=== PATIENT | male | born 1955 | race Caucasian/White ===

== ENCOUNTER 2016-10-14 15:50 | Inpatient (IN) ==
[2016-10-14 16:37] VITALS: BMI 35.4
[2016-10-14] MEDS: GLUCOPHAGE PO SCH (17:28)
[2016-10-14] MEDS: XARELTO PO SCH (17:28)
[2016-10-14] MEDS ORDERED: HUMALOG SUBCUT SCH (18:09)
[2016-10-14] MEDS ORDERED: HUMALOG SUBCUT ONE (18:18)
[2016-10-14] MEDS: OMEGA-3 FISH OIL PO SCH (20:20)
[2016-10-14] MEDS: INSULIN DEGLUDEC 60 UNIT SUBCUT SCH (20:20)
[2016-10-14] MEDS: NON-FORMULARY MEDICATION (Cinnamon Bark [Cinnamon] 1,000 MG) PO SCH (20:21)
[2016-10-14] MEDS ORDERED: FISH OIL PO SCH (21:00)
[2016-10-14] MEDS ORDERED: NON-FORMULARY MEDICATION (Metformin Hcl [Metformin Hcl] 1,000 MG) PO SCH ×22 (21:00)
[2016-10-14] MEDS ORDERED: DHA PO SCH (21:00)
[2016-10-14] MEDS ORDERED: EPA PO SCH (21:00)
[2016-10-14] MEDS: PERCOCET 5-325 PO PRN (22:43)
[2016-10-15] MEDS: SYNTHROID PO SCH (05:34)
[2016-10-15 06:13] LABS: BASOPHILS % (AUTO) 0.5 % (0.0-3.0); EOSINOPHILS # (AUTO) 0.2 K/ul (0.0-0.7); EOSINOPHILS % (AUTO) 2.3 % (0.0-7.0); IMMATURE GRANULOCYTE % (AUTO) 1.8 % (0.0-5.0); LYMPHOCYTES # (AUTO) 2.3 K/uL (0.60-3.4); LYMPHOCYTES % (AUTO) 28.9 (10.0-50.0); MEAN CORPUSCULAR HEMOGLOBIN 29.2 pg (27.0-31.0); MEAN CORPUSCULAR HGB CONC 33.3 (31.8-35.4); MEAN CORPUSCULAR VOLUME 87.7 fl (80.0-94.0); MONOCYTES # (AUTO) 0.6 K/uL (0.4-2.0); MONOCYTES % (AUTO) 7.8 (0-10); NEUTROPHILS # (AUTO) 4.7 K/ul (2.0-6.9); NEUTROPHILS % (AUTO) 58.7; PLATELET COUNT 332 10^3/uL (140-440); RED BLOOD COUNT 3.08 10^6/ul (4.70-6.10); WHITE BLOOD COUNT 7.93 K/ul (4.2-10.2)
[2016-10-15 06:38] LABS: ALBUMIN 2.6 g/dL (3.4-5.0); ALBUMIN/GLOBULIN RATIO 0.74; ANION GAP 11.9; BILIRUBIN,TOTAL 0.27 mg/dL (0.00-1.20); BUN/CREATININE RATIO 25.51; CALCIUM 8.3 mg/dL (8.2-10.2); CREATININE 0.98 mg/dL (0.60-1.10); POTASSIUM 3.9 mmol/L (3.5-5.1); TOTAL PROTEIN 6.1 g/dL (5.8-8.1)
[2016-10-15] MEDS ORDERED: HUMALOG SUBCUT SCH (08:00)
[2016-10-15] MEDS: HUMALOG SUBCUT SCH ×3 (08:14→17:28)
[2016-10-15] MEDS ORDERED: NON-FORMULARY MEDICATION (Multivit-Min/Fa/Lycopene/Lut [Centrum Silver Tablet] 1 TAB) PO SCH (09:00)
[2016-10-15] MEDS: OMEGA-3 FISH OIL PO SCH ×2 (09:36→20:41)
[2016-10-15] MEDS: GLUCOPHAGE PO SCH ×2 (09:36→17:08)
[2016-10-15] MEDS: CYMBALTA PO SCH (09:36)
[2016-10-15] MEDS: MULTIVITAMIN PO SCH (09:36)
[2016-10-15] MEDS: NON-FORMULARY MEDICATION (Cinnamon Bark [Cinnamon] 1,000 MG) PO SCH ×2 (09:46→21:00)
[2016-10-15] MEDS: CHROMIUM AMINO ACID CHELATE PO SCH (09:47)
[2016-10-15] MEDS: PERCOCET 5-325 PO PRN ×2 (10:03→14:25)
--- NOTE | 2016-10-15 11:37 | RS.PTINEVL ---
Subjective - Patient information Date of Evaluation: 10/15/16 Date of Arrival on Unit: 10/14/16 Admitted From:: Facility Transfer (Left TKA 10/11/16) Usual Living Arrangement: Alone Home Environment: Apartment, Level/No stairs Medical History: Diabetes Medical History Comments:: sleep apnea, right TKA June 2016 Subjective Information/ Patient Comments:: Patient reports he has a walker at home. Rates knee pain while walking about a 6/10. States he had pain medication approximately 45 minutes ago. States he does not want to be in the hospital more than two weeks. - Level of function Prior to this admission, the patient could do the following:: Independent Selfcare, Independent ADL's, Independent Ambulation, Perform Hvac Operations Technician/ Cooking, Drive, Participated in Social Activities Outside home, Volunteer/Work Current Level of Function: Partially Dependent Current Equipment Used at Home: cpap, glucometer, walker from last surgery and for this one. Interventions - Objective Patient Orientation: Person, Place, Time, Situation Observation: Left knee incision is approximated with sutures. It is clean and dry prior to ambulation. Following ambulation and ROM, incision demonstrates minimal draining at most superior aspect. Nursing notifed. Range of Motion - ROM Right Upper Extremity AROM: WFL's Left Upper Extremity AROM: WFL's Right Lower Extremity AROM: WFL's Left Lower Extremity AROM: Moderate limitation (left knee -5 to 70 degrees AROM) Muscle Strength - Muscle Strength Right Upper Extremity Strength: Normal Left Upper Extremity Strength: Normal Right Lower Extremity Strength: Normal Left Lower Extremity Strength: Mild Weakness Sensation - Sensation Right Lower Extremity Sensation: Intact/Normal Left Lower Extremity Sensation: Intact/Normal Balance - Sitting Balance and Reactions Static Sitting Balance: Good Dynamic Sitting Balance: Good - Standing Balance and Reactions Static Standing Balance: Good (with RW) Dynamic Standing Balance: Good (with RW) Functional Mobility - Bed Mobility Supine to Sit: Min Assist, 1 person assist, Verbal Cues, Tactile Cues Sit to Supine: Min Assist, 1 person assist, Verbal Cues, Tactile Cues Comments:: Patient demonstrates need for assistance with left LE to move it on and off the bed. - Transfers Sit to Stand: CGA, 1 person assist, Verbal Cues, Tactile Cues Stand to Sit: CGA, 1 person assist, Verbal Cues, Tactile Cues Stand Pivot Transfers: CGA, 1 person assist, Verbal Cues, Tactile Cues Comments:: Patient given verbal cues for using at least one hand to push from the bed when standing up. - Safety Awareness Safety Awareness: Fair Ambulation - Ambulation Weight Bearing Status: FWB Assistive Device Used: Rolling Walker Distance: 80 feet Assistance needed with Ambulation: CGA, Verbal Cues, Tactile Cues Quality of Ambulation: Patient takes very short steps for the first half of the distance he walked. After that, steps were more of a natural stride. He demonstrates decreased stance phase on the left LE. Decreased left knee flexion during swing phase. Decreased left heel strike. Gait Deviations: Short stride, Lacks step continuity Factors Affecting Ambulation: Pain, Decreased ROM, Decreased Safety, Limited Endurance Treatment time - Time with patient Total treatment time: 24 (mins) Patient Education - Education Patient Education: Education of diagnosis, Body/Joint mechanics, Education of Plan of Care Teaching Recipient: Patient Teaching Methods: Discussion Assessment - Assessment Problem List:: Decreased level of function, Requires training/education, Decreased safety/Risk of falls, Pain limits previous level of function Rehab Potential: Good Further Therapy Indicated?: Yes Short Term Goals GOAL #1: Supine to sit with supvn. Goal to be met by: 10/19/16 GOAL #2: Sit to stand with supvn. Goal to be met by: 10/19/16 GOAL #3: Pt amb. with supvn 150 feet with RW and good stride length. Goal to be met by: 10/19/16 Prison Goals GOAL #1: All bed mobility independent. Goal to be met by: 10/25/16 GOAL #2: All transfers independent with good safety. Goal to be met by: 10/25/16 GOAL #3: Pt amb. with RW household distances, independent with good safety. Goal to be met by: 10/25/16 Plan Plan of Care: Therapeutic EX, Neuromuscular Re-Educ, Therapeutic Activity, Self- Care/Home Management Modalities: Cold Pack/Cryotherapy Frequency of Treatment: 1-2 X day, as tolerated Duration of Treatment: 10 days Anticipated Discharge Destination: Home
[2016-10-15] MEDS ORDERED: MIRALAX PO PRN (13:48)
[2016-10-15] MEDS: COLACE PO SCH ×2 (14:25→20:41)
[2016-10-15] MEDS ORDERED: HUMALOG SUBCUT PRN (14:58)
[2016-10-15] MEDS: XARELTO PO SCH (17:07)
[2016-10-15] MEDS: INSULIN DEGLUDEC 60 UNIT SUBCUT SCH (20:41)
[2016-10-15] MEDS: FLOMAX PO SCH (20:41)
[2016-10-16] MEDS: SYNTHROID PO SCH (05:48)
[2016-10-16] MEDS: PERCOCET 5-325 PO PRN ×4 (07:29→22:41)
[2016-10-16] MEDS: MULTIVITAMIN PO SCH (08:39)
[2016-10-16] MEDS: OMEGA-3 FISH OIL PO SCH ×2 (08:39→20:22)
[2016-10-16] MEDS: GLUCOPHAGE PO SCH ×2 (08:39→16:46)
[2016-10-16] MEDS: COLACE PO SCH ×3 (08:39→20:22)
[2016-10-16] MEDS: CYMBALTA PO SCH (08:39)
[2016-10-16] MEDS: CHROMIUM AMINO ACID CHELATE PO SCH (08:40)
[2016-10-16] MEDS: NON-FORMULARY MEDICATION (Cinnamon Bark [Cinnamon] 1,000 MG) PO SCH ×2 (08:40→20:21)
[2016-10-16] MEDS: HUMALOG SUBCUT SCH ×3 (09:14→17:47)
[2016-10-16] MEDS: XARELTO PO SCH (16:46)
[2016-10-16] MEDS: FLOMAX PO SCH (20:22)
[2016-10-16] MEDS: INSULIN DEGLUDEC 60 UNIT SUBCUT SCH (20:22)
[2016-10-17] MEDS: PERCOCET 5-325 PO PRN ×5 (04:50→21:11)
[2016-10-17] MEDS: SYNTHROID PO SCH (05:36)
[2016-10-17] MEDS: MULTIVITAMIN PO SCH (08:31)
[2016-10-17] MEDS: CYMBALTA PO SCH (08:31)
[2016-10-17] MEDS: COLACE PO SCH ×3 (08:31→20:31)
[2016-10-17] MEDS: OMEGA-3 FISH OIL PO SCH ×2 (08:31→20:30)
[2016-10-17] MEDS: GLUCOPHAGE PO SCH ×2 (08:31→16:40)
[2016-10-17] MEDS: NON-FORMULARY MEDICATION (Cinnamon Bark [Cinnamon] 1,000 MG) PO SCH ×2 (08:35→20:26)
[2016-10-17] MEDS: CHROMIUM AMINO ACID CHELATE PO SCH (08:35)
[2016-10-17] MEDS: HUMALOG SUBCUT SCH ×3 (08:45→17:53)
[2016-10-17] MEDS: XARELTO PO SCH (16:40)
[2016-10-17] MEDS: INSULIN DEGLUDEC 60 UNIT SUBCUT SCH (20:29)
[2016-10-17] MEDS: FLOMAX PO SCH (20:31)
[2016-10-18] MEDS: PERCOCET 5-325 PO PRN ×5 (01:20→20:51)
[2016-10-18 04:46] LABS: BASOPHILS # (AUTO) 0.1 K/uL (0-0.2); BASOPHILS % (AUTO) 0.6 % (0.0-3.0); EOSINOPHILS # (AUTO) 0.2 K/ul (0.0-0.7); EOSINOPHILS % (AUTO) 2.8 % (0.0-7.0); HEMATOCRIT 28.4 % (42.0-52.0); HEMOGLOBIN 9.3 g/dl (14.0-18.0); IMMATURE GRANULOCYTE % (AUTO) 3.5 % (0.0-5.0); LYMPHOCYTES # (AUTO) 2.6 K/uL (0.60-3.4); LYMPHOCYTES % (AUTO) 31.1 (10.0-50.0); MEAN CORPUSCULAR HEMOGLOBIN 28.4 pg (27.0-31.0); MEAN CORPUSCULAR HGB CONC 32.7 (31.8-35.4); MEAN CORPUSCULAR VOLUME 86.9 fl (80.0-94.0); MONOCYTES # (AUTO) 0.6 K/uL (0.4-2.0); MONOCYTES % (AUTO) 7.6 (0-10); NEUTROPHILS # (AUTO) 4.5 K/ul (2.0-6.9); NEUTROPHILS % (AUTO) 54.4; PLATELET COUNT 408 10^3/uL (140-440); RED BLOOD COUNT 3.27 10^6/ul (4.70-6.10); WHITE BLOOD COUNT 8.26 K/ul (4.2-10.2)
[2016-10-18 05:11] LABS: ALBUMIN 2.7 g/dL (3.4-5.0); ALBUMIN/GLOBULIN RATIO 0.77; ANION GAP 13.3; BILIRUBIN,TOTAL 0.46 mg/dL (0.00-1.20); BUN/CREATININE RATIO 19.1; CALCIUM 8.9 mg/dL (8.2-10.2); CREATININE 0.89 mg/dL (0.60-1.10); POTASSIUM 4.3 mmol/L (3.5-5.1); TOTAL PROTEIN 6.2 g/dL (5.8-8.1)
[2016-10-18] MEDS: SYNTHROID PO SCH (05:36)
[2016-10-18] MEDS: HUMALOG SUBCUT SCH ×3 (08:26→17:39)
[2016-10-18] MEDS: CHROMIUM AMINO ACID CHELATE PO SCH (08:27)
[2016-10-18] MEDS: COLACE PO SCH ×3 (08:28→20:51)
[2016-10-18] MEDS: MULTIVITAMIN PO SCH (08:28)
[2016-10-18] MEDS: CYMBALTA PO SCH (08:28)
[2016-10-18] MEDS: NON-FORMULARY MEDICATION (Cinnamon Bark [Cinnamon] 1,000 MG) PO SCH ×2 (08:28→20:05)
[2016-10-18] MEDS: GLUCOPHAGE PO SCH ×2 (08:28→18:29)
[2016-10-18] MEDS: OMEGA-3 FISH OIL PO SCH ×2 (08:29→20:51)
--- NOTE | 2016-10-18 08:34 | RS.OTINEVL ---
Subjective - Patient information Date of Evaluation: 10/15/16 Date of Arrival on Unit: 10/14/16 Admitted From:: Facility Transfer (Left TKA 10/11/16) Usual Living Arrangement: Alone Living Arrangement Comments: Pt has an apartment in [place] on the bottom floor and it is one level. Pt has a rolling walker and a built in shower chair in his apartment. Home Environment: Apartment, Level/No stairs Medical History: Diabetes Medical History Comments:: sleep apnea, right TKA June 2016 Surgical History: Knee Replacement Surgical History Comments:: R TKA 3 months ago. L TKA for this hospitalization. 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 Current Level of Function: Partially Dependent Current Equipment Used at Home: cpap, glucometer, walker from last surgery and for this one. Pain Assessment - Pain Pain Score: 7 Side: left Pain Location Body Site: Knee Pain Aggravating Factors: ADL's, Changing Position, Exercise/Activity, Standing , Walking Pain Alleviating Factors: Ice, Exercise Interventions - Objective Patient Orientation: Person, Place, Time, Situation Observation: Pt appears to have edema of Left knee. Patient has pain and is not feeling well today. Pt participated well. Interventions - ROM Right Upper Extremity AROM: WFL's Left Upper Extremity AROM: WFL's - Strength Right Upper Extremity Strength: Mild Weakness Left Upper Extremity Strength: Mild Weakness - Sensation Right Upper Extremity Sensation: Intact/Normal Left Upper Extremity Sensation: Intact/Normal Balance - Sitting Balance Static Sitting Balance: Normal Dynamic Sitting Balance: Normal - Standing Balance Static Standing Balance: Fair Dynamic Standing Balance: Fair ADL Skills - Self Feeding Self Feeding: Independent - Grooming Grooming: Supervision - Bathing Bathing UE: Set Up Only Bathing LE: Min Assist - Dressing Dressing UE: Set Up Only Dressing LE: Min Assist - Toilet Management Toileting Management: Independent Functional Mobility - Bed Mobility Rolling R/L: CGA Scooting: Independent Supine to Sit: Independent Sit to Supine: Min Assist - Transfers Sit to Stand: CGA Stand to Sit: CGA Stand Pivot Transfers: CGA - Ambulation Weight Bearing Status: WBAT Assistive Device Used: Rolling Walker Assistance needed with Ambulation: CGA - Safety Awareness Safety Awareness: Fair Additional Treatment Performed - Additional units charged ADL: 12 - Time with patient Total treatment time: 25 Activities Patient Interests:: Watching Television Patient Education Patient Education: Education of diagnosis, Home Exercise Program, Home Safety, Education of Plan of Care Teaching Recipient: Patient Teaching Methods: Discussion Assessment Problem List:: Decreased level of function, Requires training/education, Decreased safety/Risk of falls, Weakness, Pain limits previous level of function Rehab Potential: Good Further Therapy Indicated?: Yes Short Term Goals - Goals GOAL 1: Pt to tolerate 10 minutes of standing ADLS Mod. I. Goal to be met by: 10/25/16 GOAL 2: Pt to be independent with functional transfers Mod. I. Goal to be met by: 10/25/16 GOAL 3: Pt to Increase BUE strength to 4+/5 Goal to be met by: 10/25/16 Alf Goals GOAL 1: Pt to tolerate 15 minutes of standing ADLS. Goal to be met by: 10/29/16 GOAL 2: Pt to be independent with Home exercise program Goal to be met by: 10/29/16 GOAL 3: Pt to be modified Independent with all Goals. Goal to be met by: 10/29/16 Plan Plan of Care: Therapeutic EX, Neuromuscular Re-Educ, Therapeutic Activity, Self- Care/Home Management Modalities: Cold Pack/Cryotherapy Frequency of Treatment: 1-2 X day, as tolerated Duration of Treatment: 2 Weeks Anticipated Discharge Destination: Home
[2016-10-18] MEDS: XARELTO PO SCH (18:28)
[2016-10-18] MEDS: INSULIN DEGLUDEC 60 UNIT SUBCUT SCH (20:50)
[2016-10-18] MEDS: FLOMAX PO SCH (20:51)
[2016-10-19] MEDS: PERCOCET 5-325 PO PRN ×4 (05:16→20:34)
[2016-10-19] MEDS: SYNTHROID PO SCH (06:11)
[2016-10-19] MEDS: MULTIVITAMIN PO SCH (08:08)
[2016-10-19] MEDS: COLACE PO SCH ×3 (08:08→20:34)
[2016-10-19] MEDS: OMEGA-3 FISH OIL PO SCH ×2 (08:08→20:34)
[2016-10-19] MEDS: CYMBALTA PO SCH (08:09)
[2016-10-19] MEDS: GLUCOPHAGE PO SCH ×2 (08:09→17:46)
[2016-10-19] MEDS: HUMALOG SUBCUT SCH ×3 (08:12→17:46)
[2016-10-19] MEDS: CHROMIUM AMINO ACID CHELATE PO SCH (09:15)
[2016-10-19] MEDS: NON-FORMULARY MEDICATION (Cinnamon Bark [Cinnamon] 1,000 MG) PO SCH ×2 (09:15→21:01)
[2016-10-19] MEDS: XARELTO PO SCH (17:47)
[2016-10-19] MEDS: INSULIN DEGLUDEC 60 UNIT SUBCUT SCH (20:33)
[2016-10-19] MEDS: FLOMAX PO SCH (20:34)
[2016-10-20] MEDS: PERCOCET 5-325 PO PRN ×6 (00:48→21:11)
[2016-10-20] MEDS: SYNTHROID PO SCH (05:53)
[2016-10-20] MEDS: GLUCOPHAGE PO SCH ×2 (08:59→17:07)
[2016-10-20] MEDS: OMEGA-3 FISH OIL PO SCH ×2 (09:01→21:10)
[2016-10-20] MEDS: NON-FORMULARY MEDICATION (Cinnamon Bark [Cinnamon] 1,000 MG) PO SCH ×2 (09:02→21:10)
[2016-10-20] MEDS: CYMBALTA PO SCH (09:02)
[2016-10-20] MEDS: MULTIVITAMIN PO SCH (09:02)
[2016-10-20] MEDS: CHROMIUM AMINO ACID CHELATE PO SCH (09:03)
[2016-10-20] MEDS: HUMALOG SUBCUT SCH ×4 (09:08→18:04)
[2016-10-20] MEDS: COLACE PO SCH ×3 (09:09→21:10)
[2016-10-20] MEDS ORDERED: HUMALOG SUBCUT STA ×2 (10:54→12:57)
[2016-10-20] MEDS: XARELTO PO SCH (17:07)
[2016-10-20] MEDS: FLOMAX PO SCH (21:10)
[2016-10-20] MEDS: INSULIN DEGLUDEC 60 UNIT SUBCUT SCH (21:11)
[2016-10-21 05:49] VITALS: BP 133/72; TEMP 98.2
[2016-10-21] MEDS: SYNTHROID PO SCH (05:49)
[2016-10-21 05:50] LABS: BASOPHILS # (AUTO) 0.1 K/uL (0-0.2); BASOPHILS % (AUTO) 0.7 % (0.0-3.0); EOSINOPHILS # (AUTO) 0.3 K/ul (0.0-0.7); HEMATOCRIT 29.7 % (42.0-52.0); HEMOGLOBIN 9.8 g/dl (14.0-18.0); IMMATURE GRANULOCYTE % (AUTO) 2.6 % (0.0-5.0); LYMPHOCYTES # (AUTO) 2.5 K/uL (0.60-3.4); LYMPHOCYTES % (AUTO) 29.8 (10.0-50.0); MEAN CORPUSCULAR HEMOGLOBIN 28.9 pg (27.0-31.0); MEAN CORPUSCULAR VOLUME 87.6 fl (80.0-94.0); MONOCYTES # (AUTO) 0.5 K/uL (0.4-2.0); MONOCYTES % (AUTO) 6.4 (0-10); NEUTROPHILS # (AUTO) 4.8 K/ul (2.0-6.9); NEUTROPHILS % (AUTO) 57.5; PLATELET COUNT 513 10^3/uL (140-440); RED BLOOD COUNT 3.39 10^6/ul (4.70-6.10)
[2016-10-21 06:07] LABS: ALBUMIN/GLOBULIN RATIO 0.79; ANION GAP 15.2; BILIRUBIN,TOTAL 0.49 mg/dL (0.00-1.20); POTASSIUM 4.2 mmol/L (3.5-5.1); TOTAL PROTEIN 6.8 g/dL (5.8-8.1)
[2016-10-21] MEDS: MULTIVITAMIN PO SCH (08:24)
[2016-10-21] MEDS: COLACE PO SCH (08:24)
[2016-10-21] MEDS: OMEGA-3 FISH OIL PO SCH (08:24)
[2016-10-21] MEDS: CYMBALTA PO SCH (08:24)
[2016-10-21] MEDS: GLUCOPHAGE PO SCH (08:24)
[2016-10-21] MEDS: CHROMIUM AMINO ACID CHELATE PO SCH (08:25)
[2016-10-21] MEDS: NON-FORMULARY MEDICATION (Cinnamon Bark [Cinnamon] 1,000 MG) PO SCH (08:25)
[2016-10-21] MEDS: PERCOCET 5-325 PO PRN ×2 (08:27→13:07)
[2016-10-21] MEDS: HUMALOG SUBCUT SCH ×2 (08:45→12:04)
[2016-10-21] MEDS ORDERED: HUMALOG SUBCUT STA (12:04)
[2016-10-25] MEDS ORDERED: ASPIRIN EC PO SCH (08:00)
--- NOTE | 2016-12-01 11:37 | HP ---
CHIEF COMPLAINT: "I had my knee done." DISCUSSION: This 61-year-old gentleman who originally had his left knee replaced by Dr. Olguin. He is admitted to the Transitional Care Unit for further rehabilitation, Physical Therapy. Denies any chest pain, shortness of breath or hemoptysis. PAST MEDICAL HISTORY: MEDICATIONS: Centrum Metformin NovoLog Insulin Flomax Synthroid Tresiba Fish Oil Cymbalta Cinnamon Chromium Xarelto Percocet Aspirin ALLERGIES: ADHESIVE TAPE, PROCHLORPERAZINE PAST MEDICAL HISTORY: Significant for history of diabetes type 2 BPH Hypothyroidism Degenerative joint disease History of obstructive sleep apnea PAST SURGICAL HISTORY: Knee scope Sinus surgery Bilateral TKRA SOCIAL HISTORY: . No tobacco. No illicit drug use is noted. FAMILY HISTORY: Positive for family history of pancreatic cancer. REVIEW OF SYSTEMS: No headaches, visual changes, tinnitus, chest pain, shortness of breath, hemoptysis, abdominal pain, blood in the stool, urinary symptoms or seizures. PHYSICAL EXAMINATION: V/S: Temperature 96, pulse 80, respiratory rate 18, BP 168/72. HEENT: Pupils are round. NECK: Supple. CHEST: Clear. CARDIOVASCULAR: Regular rate and rhythm. ABDOMEN: Soft, nontender. EXTREMITIES: Distal extremities without cyanosis or edema. ASSESSMENT: 1. STATUS POST TOTAL LEFT KNEE PLAN: 1. Admission 2. PT/OT 3. Will follow blood sugars during the hospital stay 4. Please see orders MTDD
--- NOTE | 2016-12-01 11:41 | DS ---
PRINCIPAL DIAGNOSIS: 1. STATUS POST TOTAL LEFT KNEE DISCUSSION: This 61-year-old gentleman who originally had his left knee replaced by Dr. Olguin. He is admitted to the Transitional Care Unit for further rehabilitation, Physical Therapy. Denies any chest pain, shortness of breath or hemoptysis. CLINICAL COURSE: Mr. Ballesteros did very well. He progressed with physical therapy. He had no significant leg swelling. His incision healed nicely without significant erythema or drainage. There is no chest pain or shortness of breath. Again, he did progress with physical therapy. At this point, we thought he was stable for discharge. He will be discharged on medication per reconciliation. He will followup with Orthopaedics in one week and keep his regular followup with me. RICHY
== END 2016-10-21 13:20 | disposition home or self-care (01) | DRG 561 ==
LOC: MEDSURG A 15:50
PROVIDERS: ADMIT Family Medicine; ATTEND Family Medicine
DX: Z47.1 Aftercare following joint replacement surgery (principal); Z96.652 Presence of left artificial knee joint; E11.9 Type 2 diabetes mellitus without complications; E03.9 Hypothyroidism, unspecified; Z79.4 Long term (current) use of insulin; Z79.899 Other long term (current) drug therapy
CPT/HCPCS: 36415; 80053; 82962; 85025; 87070; 87081; 97802